=== PATIENT | female | born 1960 | race Caucasian/White ===

== ENCOUNTER 2023-02-13 04:48 | Day surgery (SDC) | payer BC, OTHER ==
[2023-02-11 14:40] VITALS: BMI 25.0
[2023-02-13] MEDS ORDERED: LIDOCAINE HCL 1%, 10 MG/ML (20ML VIAL) INF ONE (13:17)
[2023-02-13 14:57] VITALS: BP 137/91; PULSE 73; RESP 16; TEMP 96.9
== END 2023-02-13 15:13 | disposition home or self-care (01) ==
LOC: JASU-SURG 04:48
PROVIDERS: ATTEND Orthopaedic Surgery
PROC: 015D3ZZ Destruction of Femoral Nerve, Percutaneous Approach (ICD-10-PCS; principal; 2023-02-13 13:30)
DX: M25.562 Pain in left knee (principal)